=== PATIENT | female | born 1975 | race Caucasian/White ===

== ENCOUNTER 2019-09-19 08:00 | Outpatient (CLI) | payer MEDICAID | END 2019-09-19 08:01 | disposition home or self-care (01) | LOC: D.MAMMO 08:00 | PROVIDERS: ATTEND Clinical Nurse Specialist Family Health | DX: O92.6 Galactorrhea (principal) ==

== ENCOUNTER → 2019-11-07 13:03 | Outpatient (CLI) | payer OTHER | END | disposition home or self-care (01) | LOC: D.US 13:00 | PROVIDERS: ATTEND Surgery | DX: N64.4 Mastodynia (principal); N63.11 Unspecified lump in the right breast, upper outer quadrant; N63.21 Unspecified lump in the left breast, upper outer quadrant ==

== ENCOUNTER 2019-11-27 05:15 | Day surgery (SDC) | payer OTHER ==
[~2019-11-27] VITALS: Ht 170.2 cm; Wt 58.5 kg
[~2019-11-27 05:15] MED LIST: HYDROCHLOROTH12.5 M1 PO; KLONOPIN0.5 MG PO; PROZAC20 MG PO
[2019-11-27 05:48] LABS: BASOPHILS 0.5 % (0-2); EOSINOPHILS 2.4 % (0-7); HEMATOCRIT 44.4 % (36.0-48.0); HEMOGLOBIN 14.5 g/dL (12-16); IMMATURE GRANULOCYTES 0.1 % (0-5); LYMPHOCYTES 55.3 % (15-50); MCH 28.5 pg (26.0-34.0); MCHC 32.7 g/dL (31.0-37.0); MCV 87.2 fL (80.0-100.0); MEAN PLATELET VOLUME 9.1 fL (7.4-10.4); MONOCYTES 8.2 % (2-11); NEUTROPHILS 33.5 % (40-80); PLATELET COUNT 309 10x3/uL (130-400); RBC 5.09 10x6/uL (4.00-5.40); RDW 13.1 % (11.5-14.5); WBC 7.4 10x3/uL (4.8-10.8)
[2019-11-27 06:04] LABS: ANION GAP 8.7 mmol/L (8-16); CALCIUM 8.5 mg/dL (8.5-10.1); POTASSIUM - SERUM 3.7 mmol/L (3.5-5.1)
[2019-11-27 06:24] VITALS: BP 145/95; Ht 170.2 cm; Wt 58.5 kg
--- NOTE | 2019-11-27 06:50 | NUR ---
[facility] CALLED FOR LOW RISK SCREENING.
[2019-11-27] MEDS ORDERED: HYDROCODON-ACE1 EA10 PO (13:11)
--- NOTE | 2019-11-27 13:20 | NUR ---
CONSULTED ANESTHESIA REGARDING BLOOD PRESSURE. NO NEW ORDERS GIVEN AT THIS TIME. PATIENT REMAINS WITHIN 20% OF PREOP PRESSURES. OK TO D/C TO OPD AT THIS TIME.
--- NOTE | 2019-11-28 12:56 | OP ---
PATIENT NAME: BRI RECIO MEDICAL RECORD: [id number] :77 LOCATION:D.OPS ADMISSION DATE: SURGEON: BEVERLY MAYES MD DATE OF OPERATION: 11/27/2019 PREOPERATIVE DIAGNOSES: 1. Left breast calcifications. 2. Right lateral breast mass. 3. Tobacco dependent syndrome. 4. Hypertension. POSTOPERATIVE DIAGNOSES: 1. Left breast calcifications. 2. Right lateral breast mass. 3. Tobacco dependent syndrome. 4. Hypertension. PROCEDURE: Needle local left lumpectomy. SURGEON: Beverly Mayes MD REPORT OF PROCEDURE: The patient's left breast was prepped and draped in sterile fashion. Preoperatively, the patient underwent needle localization. A semicircular incision was made on the superior aspect of the nipple areolar complex. Electrocautery was used to dissect through the subcutaneous tissues. We were able to stay above the patient's indwelling implant and come through the subcutaneous tissues in the remaining breast tissue to get underneath the wire. We eventually came through the tissue on top of the wire and we were able to dissect this wire free and eviscerate it through the wound. We then transected the tissue superiorly using electrocautery and we had a good core of tissue around the wire. The specimen was marked appropriately and sent off for mammographic evaluation and pathology. I then inspected the wound bed and there was no sign of any bleeding. We irrigated out the wound bed with sterile water and then reapproximated the subcutaneous tissues with interrupted 3-0 Vicryl and the skin was closed with running subcutaneous 5-0 Monocryl. COMPLICATIONS: None. CONDITION: Stable. ANESTHESIA: General endotracheal and local. BLOOD LOSS: Minimal. NTS:[id number] Voice Confirmation ID: [id number] DOCUMENT ID: [id number] BEVERLY MAYES MD at 1256 CC: Ruth GONZALEZ SCOTT [id number] DICTATION DATE: 11/27/19 1315 VENEER JOINTER HELPER: 11/27/19 2151 [facility] 11/27/19 [id number] [place] [address]
== END 2019-11-27 15:05 | disposition home or self-care (01) ==
LOC: D.OPS 05:15
PROVIDERS: ATTEND Surgery
DX: N64.4 Mastodynia (principal); R92.1 Mammographic calcification found on diagnostic imaging of breast; N63.11 Unspecified lump in the right breast, upper outer quadrant; F17.200 Nicotine dependence, unspecified, uncomplicated; I10 Essential (primary) hypertension

== ENCOUNTER 2019-12-27 07:56 | Day surgery (SDC) | payer OTHER, MEDICAID ==
[~2019-12-27] VITALS: Ht 170.2 cm; Wt 57.2 kg
--- NOTE | ~2019-12-27 | OP ---
PATIENT NAME: BRI RECIO MEDICAL RECORD: [id number] :77 LOCATION:[facility] ADMISSION DATE: SURGEON: IVAN MAYES MD DATE OF OPERATION: 12/27/2019 PREOPERATIVE DIAGNOSIS: Right breast fibroadenoma. POSTOPERATIVE DIAGNOSIS: Right breast fibroadenoma. PROCEDURE: Excision of 2 cm right breast fibroadenoma. SURGEON: Ivan Mayes MD REPORT OF PROCEDURE: The patient's right lateral breast was prepped and draped in sterile fashion. A longitudinal incision was made near the crease of the patient's anterior axilla. Electrocautery was used to dissect through the subcutaneous tissues. Using manipulation, we were able to kind of push this mass out of the incision and eviscerate it. We were able to come around this mass using electrocautery and removed a large section of tissue in this right upper outer quadrant of the breast. Any bleeding from this area was treated with electrocautery. We then infused a total of 10 mL of 0.25% Marcaine with epinephrine to the surrounding tissues. The subcutaneous tissues were reapproximated with interrupted 3-0 Vicryl and the skin was closed with running subcutaneous 5-0 Monocryl. COMPLICATIONS: None. CONDITION: Stable. ANESTHESIA: General endotracheal and local. BLOOD LOSS: Minimal. NTS:[id number] Voice Confirmation ID: [id number] DOCUMENT ID: [id number] IVAN MAYES MD CC: TEJ SCOTT [id number] DICTATION DATE: 12/27/19 112 GUIDE EXCURSION: 12/27/19 190 [facility] 12/27/19 [address] [place] [address]
[~2019-12-27 07:56] MED LIST changes: +HYDROCODON-ACE1 EA10 PO
[2019-12-27 08:15] LABS: HEMATOCRIT 43.1 % (36.0-48.0); MCH 28.7 pg (26.0-34.0); MCHC 32.5 g/dL (31.0-37.0); MCV 88.5 fL (80.0-100.0); MEAN PLATELET VOLUME 9.1 fL (7.4-10.4); PLATELET COUNT 368 10x3/uL (130-400); RBC 4.87 10x6/uL (4.00-5.40); RDW 13.9 % (11.5-14.5); WBC 7.4 10x3/uL (4.8-10.8)
[2019-12-27 08:24] LABS: ANION GAP 8.4 mmol/L (8-16); CALCIUM 8.7 mg/dL (8.5-10.1); CARBON DIOXIDE 30.3 mmol/L (21.0-32.0); CREATININE - SERUM 0.9 mg/dL (0.6-1.3); POTASSIUM - SERUM 3.7 mmol/L (3.5-5.1)
[2019-12-27 08:42] VITALS: BP 143/99; Ht 170.2 cm; Wt 57.2 kg
[2019-12-27] MEDS ORDERED: HYDROCODON-ACE1 EA10 PO (11:17)
[2019-12-27 11:42] LABS: EOSINOPHILS 1 % (0-7); LYMPHOCYTES 43 % (15-50); MONOCYTES 11 % (2-11); NEUTROPHILS 45 % (40-80); PLATELET ESTIMATE NORMAL
--- NOTE | 2019-12-27 13:28 | NUR ---
1230 PT MEDICATED WITH NORCO FOR A PAIN LEVEL OF 4 OUT OF 10 1255 PT STATES THAT PAIN IS STARTING TO DECREASE. NO REACTIONS NOTED FROM RECEIVING NORCO. IV DC'D. CATHETER TIP INTACT. NO BLEEDING AT SITE. COBAN APPLIED. REVIEWED DISCHARGE INSTRUCTIONS WITH PATIENT WHO VOICES UNDERSTANDING OF INSTRUCTIONS.
== END 2019-12-27 13:14 | disposition home or self-care (01) ==
LOC: D.OPS 07:56
PROVIDERS: ATTEND Surgery
DX: D24.1 Benign neoplasm of right breast (principal); Z72.0 Tobacco use